=== PATIENT | female | born 1965 ===

== ENCOUNTER 2023-04-17 11:08 | Observation (INO) | payer MEDICARE ==
[~2023-04-17 11:08] MED LIST: Iopamidol-370 76% 500 ML MDV (1 ML CHARGE) ONE
[2023-04-17 12:27] LABS: #Basophils 0.1 thou/uL (0.0-0.2); #Eosinphils 0.2 thou/uL (0.0-0.7); #Monocytes 0.9 thou/uL (0.11-0.59); #Neutrophils 8.6 thou/uL (1.40-6.50); %Basophils 0.4 % (0.0-1.0); %Eosinophils 1.4 % (0.0-10.0); %Lymphocytes 24.6 % (21.0-51.0); %Monocytes 6.6 % (0.0-10.0); %Neutrophils 66.6 % (42.0-75.0); Hematocrit 50.2 % (36.0-47.0); Hemoglobin 16.8 g/dL (12.0-16.0); Mean Corpuscular HGB CONC 33.5 g/dL (32.0-36.0); Mean Corpuscular Hemoglobin 32.3 pg (27.0-31.0); Mean Corpuscular Volume 96.5 fl (78.0-98.0); Mean Platelet Volume 11.8 fL (7.4-10.4); Platelet Count 183 10x3/uL (130-400); RBC Distribution Width 13.7 % (11.5-14.5); White Blood Cell (WBC) Count 12.9 10x3/uL (4.8-10.8)
[2023-04-17 12:49] LABS: ALT (SGPT) 20 U/L (8-55); AST (SGOT) 19 U/L (5-34); Albumin 3.8 g/dL (3.5-5.0); Alkaline Phosphatase 122 U/L (40-110); Anion Gap 12 mmol/L (10-20); BUN (Urea Nitrogen) 17 mg/dL (9.8-20.1); Bilirubin, Total 0.3 mg/dL (0.2-1.2); Calc. Creatinine Clearance 0 mL/min (70-130); Calcium 8.9 mg/dL (7.8-10.44); Carbon Dioxide 30 mmol/L (22-29); Chloride 101 mmol/L (98-107); Estimated GFR 56; Globulin 2.7 g/dL (2.4-3.5); Glucose 191 mg/dL (70-105); Lipase 25 U/L (8-78); Potassium 4.6 mmol/L (3.5-5.1); Protein, Total 6.5 g/dL (6.0-8.3); Sodium 138 mmol/L (136-145)
[2023-04-17 14:08] LABS: Troponin I Less than 0.010 ng/mL (< 0.028)
[2023-04-17] MEDS ORDERED: Nicotine 21 MG PATCH TD PRN (16:38)
[2023-04-17] MEDS ORDERED: Acetaminophen 325 MG TAB PO PRN (16:38)
[2023-04-17] MEDS ORDERED: Senokot S 8.6-50 MG TAB PO PRN (16:38)
[2023-04-17] MEDS ORDERED: Nitroglycerin 0.4 MG TAB (25 Tab Bottle) SL PRN (16:38)
[2023-04-17] MEDS ORDERED: Dextrose 5% in Water 1,000 ML IV PRN (16:42)
[2023-04-17] MEDS ORDERED: Dextrose 50% Abboject 50 ML SYRINGE SLOW IVP PRN (16:42)
[2023-04-17] MEDS ORDERED: HumaLOG 300 UNITS/3 ML VIAL SC PRN (16:42)
[2023-04-17] MEDS ORDERED: Glucagon 1 MG/ML KIT IM PRN (16:42)
[2023-04-17] MEDS ORDERED: Electrolyte Replacement Protocol FS SCH (16:45)
[2023-04-17] MEDS ORDERED: Promethazine HCl 12.5 MG in Sodium Chloride 0.9% 50 ML IVPB PRN (16:45)
[2023-04-17] MEDS ORDERED: Albuterol 200 PUFF (6.7GM INHALER) INH PRN (16:46)
[2023-04-17 16:52] LABS: Bacteria/HPF None Seen HPF (None Seen); Bilirubin Negative (Negative); Blood, Urine Negative (Negative); CAUTI Indications for Culture Pelvic or flank pain; Clarity Clear (Clear); Glucose, Urine (Dipstick) 500 mg/dL (Negative); Ketone, Urine Negative (Negative); Leukocyte 25 Leu/uL (Negative); Nitrite Negative (Negative); Protein, Urine (Dipstick) 300 mg/dL (Neg-Trace); RBC/HPF 0-3 HPF (0-3); Specific Gravity, Urine 1.051 (1.002-1.036); Squamous Epithelial 0-3 HPF (0-3)
[2023-04-17 16:54] LABS: Urine Culture Reflex No No
[2023-04-17] MEDS ORDERED: PARoxetine 20 MG TAB PO SCH (17:30)
[2023-04-17 17:49] LABS: Magnesium 2.1 mg/dL (1.6-2.6)
[2023-04-17 17:50] LABS: Troponin I Less than 0.010 ng/mL (< 0.028)
[2023-04-17 19:24] VITALS: BMI 45.0
[2023-04-17 19:27] LABS: Troponin I Less than 0.010 ng/mL (< 0.028)
[2023-04-17] MEDS ORDERED: Atorvastatin Calcium 40 MG TAB PO SCH (21:00)
[2023-04-17] MEDS: Cephalexin 250 MG CAP PO SCH (22:00)
[2023-04-17] MEDS: Famotidine 20 MG TAB PO SCH (22:00)
[2023-04-17] MEDS: PARoxetine 20 MG TAB PO SCH ×2 (22:00→22:08)
[2023-04-18] MEDS ORDERED: Pramipexole Di-HCl 1 MG TAB PO SCH (01:45)
[2023-04-18] MEDS ORDERED: Gabapentin 300 MG CAP PO SCH (01:45)
[2023-04-18 04:28] LABS: #Eosinphils 0.2 thou/uL (0.0-0.7); #Monocytes 0.8 thou/uL (0.11-0.59); %Basophils 0.3 % (0.0-1.0); %Eosinophils 1.5 % (0.0-10.0); %Lymphocytes 31.8 % (21.0-51.0); %Monocytes 6.4 % (0.0-10.0); %Neutrophils 59.5 % (42.0-75.0); Hematocrit 46.9 % (36.0-47.0); Hemoglobin 15.6 g/dL (12.0-16.0); Mean Corpuscular HGB CONC 33.3 g/dL (32.0-36.0); Mean Corpuscular Hemoglobin 32.6 pg (27.0-31.0); Mean Corpuscular Volume 97.9 fl (78.0-98.0); Mean Platelet Volume 12.1 fL (7.4-10.4); Platelet Count 163 10x3/uL (130-400); RBC Distribution Width 13.8 % (11.5-14.5); Red Blood Cell (RBC) Count 4.79 mill/uL (4.20-5.40); White Blood Cell (WBC) Count 11.8 10x3/uL (4.8-10.8)
[2023-04-18] MEDS: HumaLOG 300 UNITS/3 ML VIAL SC PRN ×2 (06:17→12:08)
[2023-04-18] MEDS ORDERED: FLU VACC QS2023-24(6MOS UP)/PF 60 MCG/0.5 ML SYRINGE IM ONE (09:00)
[2023-04-18 09:26] LABS: Albumin 3.7 g/dL (3.5-5.0)
[2023-04-18 09:27] LABS: Chloride 100 mmol/L (98-107)
[2023-04-18 09:28] LABS: Calcium 8.9 mg/dL (7.8-10.44); Potassium 4.7 mmol/L (3.5-5.1); Sodium 135 mmol/L (136-145)
[2023-04-18 09:29] LABS: Globulin 2.7 g/dL (2.4-3.5); Glucose 271 mg/dL (70-105); Protein, Total 6.4 g/dL (6.0-8.3)
[2023-04-18 09:30] LABS: Anion Gap 17 mmol/L (10-20); Carbon Dioxide 23 mmol/L (22-29)
[2023-04-18 09:31] LABS: Bilirubin, Total 0.4 mg/dL (0.2-1.2)
[2023-04-18 09:32] LABS: Alkaline Phosphatase 121 U/L (40-110); Calc. Creatinine Clearance 101 mL/min (70-130); Estimated GFR 53
[2023-04-18 09:33] LABS: BUN (Urea Nitrogen) 24 mg/dL (9.8-20.1)
[2023-04-18 09:34] LABS: AST (SGOT) 14 U/L (5-34)
[2023-04-18 09:35] LABS: ALT (SGPT) 21 U/L (8-55)
[2023-04-18] MEDS: Famotidine 20 MG TAB PO SCH (09:45)
[2023-04-18] MEDS: Cephalexin 250 MG CAP PO SCH ×2 (09:46→14:40)
[2023-04-18] MEDS ORDERED: clonazePAM 1 MG TAB PO PRN (10:42)
[2023-04-18] MEDS ORDERED: HYDROcodone/Acetaminophen 5/325 mg Tablet PO PRN (10:42)
[2023-04-18] MEDS ORDERED: Isosorbide Dinitrate 20 MG TAB PO SCH ×2 (10:58→15:00)
[2023-04-18] MEDS ORDERED: Amlodipine 10 MG TAB PO SCH (11:00)
[2023-04-18] MEDS ORDERED: Lisinopril 10 MG TAB PO SCH (11:00)
[2023-04-18] MEDS ORDERED: Gabapentin 400 MG CAP PO SCH (15:00)
[2023-04-18 16:50] VITALS: BP 137/65; TEMP 97.8
[2023-04-18] MEDS ORDERED: Apixaban 5 MG TAB PO SCH (21:00)
[2023-04-19] MEDS ORDERED: Levothyroxine Sodium 112 MCG TAB PO SCH (06:00)
[2023-04-19] MEDS ORDERED: Levothyroxine Sodium 25 MCG TAB PO SCH (06:00)
[2023-04-19] MEDS ORDERED: Lisinopril 10 MG TAB PO SCH (09:00)
[2023-04-19] MEDS ORDERED: Amlodipine 5 MG TAB PO SCH (09:00)
[2023-04-19] MEDS ORDERED: Empagliflozin 10 MG TAB PO SCH (09:00)
[2023-04-19] MEDS ORDERED: Hydrochlorothiazide 25 MG TAB PO SCH (09:00)
[2023-04-19] MEDS ORDERED: Aripiprazole 10 MG TAB PO SCH (21:00)
== END 2023-04-18 18:34 | disposition home or self-care (01) ==
LOC: ERS 11:08 → 2NO 15:50
PROVIDERS: ADMIT Internal Medicine; ATTEND Hospitalist
DX: R10.9 Unspecified abdominal pain (principal); R07.9 Chest pain, unspecified; F32.A Depression, unspecified; E11.9 Type 2 diabetes mellitus without complications; I13.0 Hypertensive heart and chronic kidney disease with heart failure and stage 1 through stage 4 chronic kidney disease, or unspecified chronic kidney disease; N18.2 Chronic kidney disease, stage 2 (mild); I50.9 Heart failure, unspecified; E11.22 Type 2 diabetes mellitus with diabetic chronic kidney disease; J44.9 Chronic obstructive pulmonary disease, unspecified; I45.10 Unspecified right bundle-branch block; E66.9 Obesity, unspecified; E03.9 Hypothyroidism, unspecified; E78.5 Hyperlipidemia, unspecified; H26.9 Unspecified cataract; F41.9 Anxiety disorder, unspecified; G25.81 Restless legs syndrome; Z90.49 Acquired absence of other specified parts of digestive tract; Z90.89 Acquired absence of other organs; Z90.710 Acquired absence of both cervix and uterus; Z89.512 Acquired absence of left leg below knee; Z89.511 Acquired absence of right leg below knee; Z98.84 Bariatric surgery status; Z79.82 Long term (current) use of aspirin
CPT/HCPCS: 71045; 74177; 80053 ×2; 81001; 82962 ×2; 83690; 83735; 83880; 84484 ×2; 85025 ×2; 93005; 94760; 96372; 99285; G0378 ×3; 36415; 36416; J1650; J1815; Q9967